=== PATIENT | male | born 1980 | race Caucasian/White ===

== ENCOUNTER 2021-11-24 20:44 | Emergency (ER) | payer OTHER, MEDICAID, SELFPAY ==
[2021-11-24 20:56] VITALS: BP 114/67; PULSE 87; RESP 20; TEMP 36.7; O2SAT 98
[2021-11-24] MEDS: FLUORESCEIN 1 MG STRIP EYE-LEFT (21:01)
[2021-11-24] MEDS: TET,DIPH,PERTUSS(ACELL),VAC/PF 0.5 ML SYRINGE IM (21:01)
[2021-11-24] MEDS: PROPARACAINE 0.5% OPHTH SOL 1 DROPS EYE-LEFT (21:01)
--- NOTE | 2021-11-24 22:23 | ED_ITS ---
HPI - Eye Problem General Chief complaint: Eye Problems Stated complaint: possible metal splinter in lt eye Time Seen by Provider: 11/24/21 21:17 Source: patient Mode of arrival: Ambulatory History of Present Illness HPI Narrative: Patient is a 41-year-old male who presents with something in his left eye. He does not were contacts or glasses. Yesterday he was cutting some metal without safety glasses and feels like he may have caught something in his eye. His previously he had something imbedded in his right eye requiring an ophthalmology removal. His eye is quite irritated. At he flushed it out multiple times yesterday trying to get it out but is not successful. He denies any blurry vision or double vision. Related Data Previous Rx's Medication Instructions Recorded polymyxin B sulfate 10,000 2 drp EYE-LEFT Q4HRWA #10 ml 11/24/21 unit-trimethoprim 1 mg/mL eye drops (Polytrim) Review of Systems Review of Systems Narrative: GENERAL: Denies chills,fever HEENT: See HPI RESPIRATORY: Denies dyspnea, cough, wheezing CARDIOVASCULAR: Denies chest pain, palpitations GASTROINTESTINAL: Denies nausea, vomiting MUSCULOSKELETAL: Denies extremity pain, injury SKIN: No rash, no laceration, no pruritus NEUROLOGIC: Denies weakness, dizziness, headache, numbness 8 point review of systems is negative except for those stated above and HPI Exam Initial Vital Signs Initial Vital Signs: Vital Signs Temperature 98.0 F 11/24/21 20:56 Pulse Rate 87 11/24/21 20:56 Respiratory Rate 20 11/24/21 20:56 Blood Pressure 114/67 11/24/21 20:56 Pulse Oximetry 98 11/24/21 20:56 GENERAL: Well-appearing, well-nourished and in no acute distress. Left eye was treated with proparacaine, stained with fluorescein. No dye upt richard. Possible small foreign body on cornea but no significant abrasion is irritated. No drainage CARDIOVASCULAR: peripheral pulses in tact, cap refill <2 sec RESPIRATORY: No respiratory distress, speaks in full sentences without difficulty EXTREMITIES: Normal range of motion, no clubbing or edema. Neurovascularly intact NEUROLOGICAL: Cranial nerves II through XII grossly intact. Normal gait and speech. SKIN: Warm, dry, no petechiae, no rashes or lesions. Course Orders Ordered: Discontinued Medications Diphtheria/Tetanus/Acell Pertussis (Diph,Pertuss(Acell),Tet Vac/Pf 0.5 Ml Syringe) 0.5 ml IM .ONCE ONE Stop: 11/24/21 20:55 Last Admin: 11/24/21 21:03 Dose: Not Given Documented by: ROMELIA Diphtheria/Tetanus/Acell Pertussis (Tet,Diph,Pertuss(Acell),Vac/Pf 0.5 Ml Syringe) 0.5 ml IM .ONCE ONE Stop: 11/24/21 21:00 Last Admin: 11/24/21 21:01 Dose: 0.5 ml Documented by: ROMELIA Erythromycin (Erythromycin Ophth 1 Gm Oint) 1 applic EYE-LEFT NOW ONE Stop: 11/24/21 22:22 Last Admin: 11/24/21 22:34 Dose: 1 applic Documented by: JON Fluorescein Sodium (Fluorescein 1 Mg Strip) 1 mg EYE-LEFT NOW ONE Stop: 11/24/21 20:57 Last Admin: 11/24/21 21:01 Dose: 1 mg Documented by: ROMELIA Proparacaine HCl (Proparacaine 0.5% Ophth Kaye) 1 drops EYE-LEFT NOW ONE Stop: 11/24/21 20:56 Last Admin: 11/24/21 21:01 Dose: 1 drop Documented by: ROMELIA Vital Signs Vital signs: Vital Signs - 8 hr 11/24/21 20:56 Temperature 98.0 F Pulse Rate 87 Respiratory Rate 20 Blood Pressure 114/67 Pulse Oximetry 98 MDM - Eye Problem MDM Narrative Medical decision making narrative: Patient is given diluted proparacaine solution 1:10 for total amout of 3 mL. His instructions 1-2 drops every hours for 24 hours only. He is also given erythromycin ophthalmic ointment in the ED with a prescription for Polytrim drops. There is no obvious dye uptake but is he see possible small foreign body. Discharge Plan Departure Patient Disposition: Home Clinical Impression: Acute foreign body of left eye Instructions: How to Get a Foreign Body Out of Your Eye Activity Restrictions/Additional Instructions: *You have been diagnosed with foreign body *What to do: It appears that you have a very small foreign body in her eye. They do recommend Ophthalmology follow-up *Continue to take medications as directed May use diluted proparacaine drops 1-2 drops every hour for only 24 hours Polytrim eyedrops 1-2 drops every 4 hours while awake Erythromycin ointment at nighttime Motrin 800 mg every 8 hours if needed for [id number]-hyafbhgp pain Tylenol 1000 mg every 6 hours if needed for [id number]-[id number] pain *Follow up with your primary care provider in 2-3 days or call [phone] *Return to ER if you should have increasing pain, visual changes or any new, worsening or concerning symptoms Prescriptions: New polymyxin B sulf-trimethoprim [Polytrim] 10,000 unit- 1 mg/mL drops 2 drp EYE-LEFT Q4HRWA Qty: 10 0RF Referrals: Braxton Patino MD [Physician] -
[2021-11-24] MEDS: FLUORESCEIN 1 MG STRIP (22:24)
[2021-11-24] MEDS: ERYTHROMYCIN OPHTH 1 GM OINT 1 APPLIC EYE-LEFT (22:34)
--- NOTE | 2021-11-25 | DI.RAD.S_ITS ---
PROCEDURE: XR PELVIS 1-2V INDICATIONS: TRAUMA TECHNIQUE: Single-view of the pelvis acquired. COMPARISON: None. FINDINGS: Bones: No definite fractures or dislocations. No suspicious bony lesions. Soft tissues: Visualized bowel gas pattern is normal. No suspicious soft tissue calcifications. IMPRESSION: 1. No definite fracture or dislocation. Dictated by: Ash Chu M.D. on 11/25/2021 at 22:57 Approved by: Ash Chu M.D. on 11/25/2021 at 22:57
== END 2021-11-24 22:53 | disposition home or self-care (01) ==
PROVIDERS: Emergency Provider Emergency Medicine
DX: T15.02XA Foreign body in cornea, left eye, initial encounter (principal); Z23 Encounter for immunization; W45.8XXA Other foreign body or object entering through skin, initial encounter
CPT/HCPCS: 90471; 99283; 90715

== ENCOUNTER 2022-04-08 21:49 | Emergency (ER) | payer OTHER, MEDICAID, SELFPAY ==
[2022-04-08 21:55] VITALS: BP 135/70; PULSE 89; RESP 18; TEMP 37.1; O2SAT 98; BMI 25.8
--- NOTE | 2022-04-09 01:27 | ED.SKABFB ---
HPI - Skin/Abscess/Foreign Bdy General Chief complaint: Extremity Injury, Upper Stated complaint: Possible Blood Poisoning Time Seen by Provider: 04/08/22 23:37 Source: patient Mode of arrival: Ambulatory Limitations: no limitations History of Present Illness HPI narrative: 41-year-old male nonsmoker noncontributory medical history presents with a chief complaint of a knee largely improving, spider bite on his left elbow. He 1st noticed it a few days ago, denies seeing any insects or spiders and denies any obvious injury, he developed some pain, redness and swelling on the dorsal aspect of his elbow. He was able to express some purulence material from it and the swelling of his elbow greatly improved but this evening he noticed a red streak up his left biceps. He is otherwise well and denies any systemic symptoms such as dizziness, weakness or lightheadedness. He has no fever or chills denies nausea or vomiting. Related Data Previous Rx's Medication Instructions Recorded polymyxin B sulfate 10,000 2 drp EYE-LEFT Q4HRWA #10 ml 11/24/21 unit-trimethoprim 1 mg/mL eye drops (Polytrim) doxycycline hyclate 100 mg tablet 100 mg PO BID #20 tab 04/09/22 Allergies Allergy/AdvReac Type Severity Reaction Status Date / Time No Known Drug Allergies Allergy Verified 04/08/22 21:55 Review of Systems Review of Systems Narrative: GENERAL: Denies chills, fatigue, malaise, fever, sweats. HEENT: Denies sinus pain, ear pain, sore throat, difficulty swallowing, dizziness. RESPIRATORY: Denies dyspnea, cough, wheezing, hemoptysis, sputum. CARDIOVASCULAR: Denies chest pain, palpitations, orthopnea, edema, GASTROINTESTINAL: Denies nausea, vomiting, abdominal pain, diarrhea, constipation, melena. : Denies dysuria, frequency, incontinence, hematuria, urinary retention. MUSCULOSKELETAL: See HPI SKIN: Denies rash, skin lesions, or other NEUROLOGIC: Denies weakness, headache, numbness, change in speech, confusion, seizures, incoordination. PSYCHIATRIC: No concerning psychosocial issues. 12 point review of systems is negative except for those stated above Patient History tobacco type: smokeless tobacco alcohol intake frequency: 0-2 drinks per day Substance Use Type: marijuana Exam Narrative Exam Narrative: GEN: AOx3 and in mild distress EYES: Pupils are equal, round, and reactive to light and accommodation. Extraoccular muscles are intact bilaterally. There is no subconjunctival hemorrhage or exudate. CHEST: Lungs are clear to auscultation bilaterally and free of wheezes, rales, or rhonchi. Heart rate is regular rhythm, there are no murmurs, clicks, rubs, or gallops. There is no chest wall tenderness. ABD: Abdomen is soft and nontender. There is no guarding or rebound. Bowel sounds are normal in all 4 quadrants. There is no mass or organomegaly. EXT: Full ROM of elbow without evidence to suggest septic joint. Small crusted lesion with minimal surrounding erythema is draining a small amount of purulent material. a few cm of lymphangitis noticed on underside of left biceps, no palpable lymphadenopathy SKIN: Warm, pink, and dry. No erythema or rash Initial Vital Signs Initial Vital Signs: Vital Signs Temperature 98.7 F 04/08/22 21:55 Pulse Rate 89 04/08/22 21:55 Respiratory Rate 18 04/08/22 21:55 Blood Pressure 135/70 04/08/22 21:55 Pulse Oximetry 98 04/08/22 21:55 Course Orders Ordered: Discontinued Medications Doxycycline Hyclate (Doxycycline Hyclate 100 Mg Tablet) 100 mg PO NOW ONE Stop: 04/09/22 01:28 Last Admin: 04/09/22 01:32 Dose: 100 mg Documented by: AMARILYS Vital Signs Vital signs: Vital Signs - 8 hr 04/08/22 21:55 Temperature 98.7 F Pulse Rate 89 Respiratory Rate 18 Blood Pressure 135/70 Pulse Oximetry 98 MDM - Skin/Abscess/Foreign Bdy MDM Narrative Medical decision making narrative: well-appearing 41-year-old male with reassuring history physical exam. Patient with no signs of sepsis or systemic complaints. Physical exam would suggest against the likelihood of septic joint. Abscess is spontaneously draining without indication for more thorough incision and drainage. Wound culture obtained and sent to lab. Return precautions discussed and questions answered to his apparent satisfaction Discharge Plan Departure Patient Disposition: Home Clinical Impression: Cellulitis of left elbow Instructions: DI for Cellulitis -- Adult Activity Restrictions/Additional Instructions: *You have been diagnosed with [left elbow cellulitis with lymphangitis. Your history and physical exam are very reassuring. I obtained a wound culture which should give us results in a few days, we will call you if and only if a change to your antibiotic regimen is required *What to do: *Please continue to take your regular medications as directed. [x ] New medication prescriptions sent to your pharmacy: [ [facility]] [ ] New medication written as a paper prescription [ ] No new medications given *Please follow up with your primary care provider in 2-3 days, call for an appointment. Let them know you were seen in the Emergency Department and that we ask that you be seen in follow up. We will electronically transmit a record of today's note if your PCP is in our system *If you do not have a primary care provider please contact the [facility] Resource line at [phone]. They will ask some questions about your medical history and help get you set up with a doctor in the community. *Return to Emergency Department if you should have any new, worsening or concerning symptoms, such as [fever greater than 101 F, shaking chills, worsening pain, persistent vomiting or other bothersome symptoms] Prescriptions: New doxycycline hyclate 100 mg tablet 100 mg PO BID Qty: 20 0RF No Action polymyxin B sulf-trimethoprim [Polytrim] 10,000 unit- 1 mg/mL drops 2 drp EYE-LEFT Q4HRWA Qty: 10 0RF
[2022-04-09] MEDS: DOXYCYCLINE HYCLATE 100 MG TABLET PO (01:32)
== END 2022-04-09 01:34 | disposition home or self-care (01) ==
PROVIDERS: Emergency Provider Emergency Medicine
DX: L03.114 Cellulitis of left upper limb (principal)
CPT/HCPCS: 87070; 87075; 87077; 87147; 87205; 99283

== ENCOUNTER 2022-11-07 09:50 | Emergency (ER) | payer OTHER, MEDICAID, SELFPAY ==
[2022-11-07 10:18] VITALS: BP 136/75; PULSE 106; RESP 14; TEMP 37.2; O2SAT 99; BMI 25.0
--- NOTE | 2022-11-07 14:17 | ED.BACK ---
HPI - Back Pain/Injury <Purnima Clemons PA-C - Last Filed: 11/07/22 15:45> General Chief Complaint: Back Pain/Injury Stated Complaint: thinks he might've pinched a nerve t-5 Time Seen by Provider: 11/07/22 13:50 Source: patient History of Present Illness HPI Narrative: 42-year-old male with no reported past medical history presents to the ED with 3 days of lower back pain. Patient states he was lifting something heavy, after which his pain started. Patient denies numbness, tingling, weakness. Patient denies urinary hesitancy, urinary incontinence, saddle paresthesias, bowel incontinence. Patient states that he felt some pain in the gluteal areas, however pain does not radiate down his legs. The lower back pain is left greater than right. Related Data Previous Rx's Medication Instructions Recorded cyclobenzaprine 10 mg tablet 10 mg PO TID PRN muscle spasm #20 11/07/22 tabs Allergies Allergy/AdvReac Type Severity Reaction Status Date / Time No Known Drug Allergies Allergy Verified 11/07/22 10:23 Review of Systems <Purnima Clemons PA-C - Last Filed: 11/07/22 15:45> Review of Systems ROS Unobtainable: All systems reviewed & are unremarkable except as noted in HPI and below Constitutional Constitutional: Denies chills, Denies fatigue, Denies fever(s), Denies frequent falls, Denies lethargy and Denies weakness Eyes Eyes: Denies change in vision, Denies eye discharge, Denies irritation and Denies loss of vision ENT Ears, Nose, Mouth, and Throat: Denies change in voice, Denies dizziness, Denies neck pain, Denies sore throat and Denies throat swelling Cardiovascular Cardiovascular: Denies chest pain, Denies irregular heart rhythm, Denies lightheadedness, Denies palpitations, Denies dyspnea, Denies dyspnea on exertion and Denies orthopnea Respiratory Respiratory: Denies cough, Denies dyspnea, Denies dyspnea on exertion and Denies wheezing Gastrointestinal Gastrointestinal: Denies abdominal pain, Denies change in bowel habits, Denies diarrhea, Denies nausea and Denies vomiting Genitourinary Genitourinary: Denies hematuria, Denies flank pain, Denies urinary incontinence and Denies urinary urgency Musculoskeletal Musculoskeletal: Reports back pain, Denies muscle weakness, Denies neck pain, Denies numbness and Denies tingling Integumentary/Breasts Skin/Breast: Denies pruritus, Denies erythema, Denies rash and Denies wounds Neurologic Neurologic: Denies behavioral changes, Denies confusion, Denies dizziness, Denies frequent falls, Denies loss of vision, Denies numbness, Denies tingling and Denies weakness Psychiatric Psychiatric: Denies anxiety, Denies behavioral changes, Denies confusion, Denies depression, Denies homicidal ideation and Denies suicidal ideation Endocrine Endocrine: Denies fatigue, Denies flushing and Denies palpitations Hematologic/Lymphatic Hematologic/Lymphatic: Denies easy bruising Allergic/Immunologic Allergic/Immunologic: Denies urticaria, Denies throat swelling and Denies wheezing Patient History <Purnima Clemons PA-C - Last Filed: 11/07/22 15:45> tobacco type: smokeless tobacco alcohol intake frequency: 0-2 drinks per day Substance Use Type: marijuana Exam <Purnima Clemons PA-C - Last Filed: 11/07/22 15:45> Narrative Exam Narrative: Const General:?cooperative, healthy appearing and comfortable [facility] Head:?normal to inspection Ears:?hearing grossly normal bilaterally Nose:?external nose normal Face and sinus:?normal facial exam and sinuses nontender Mouth:?oral mucosae normal Throat:?posterior oropharynx normal Eyes General:?appearance normal, both eyes and all related structures Neck Neck:?normal visual inspection and no lymphadenopathy noted Resp Effort & Inspection:?normal respiratory effort Auscultation:?clear to auscultation bilaterally Cardio Rate:?regular rate Rhythm:?regular rhythm Musculoskeletal Midline tenderness to palpation in the lumbar region. Left sided Paraspinal tenderness to palpation in the lumbar region. Strength and sensation intact. Range of motion intact. Gait is normal. Patient is neurovascularly intact. Neuro General:?patient alert, patient awake and patient oriented x3 Initial Vital Signs Initial Vital Signs: Vital Signs Temperature 99.0 F 11/07/22 10:18 Pulse Rate 106 H 11/07/22 10:18 Respiratory Rate 14 11/07/22 10:18 Blood Pressure 136/75 11/07/22 10:18 Pulse Oximetry 99 11/07/22 10:18 Oxygen Delivery Method 11/07/22 10:18 <Cinthya Hdez DO - Last Filed: 11/08/22 09:17> Initial Vital Signs Initial Vital Signs: Vital Signs Temperature 99.0 F 11/07/22 10:18 Pulse Rate 106 H 11/07/22 10:18 Respiratory Rate 14 11/07/22 10:18 Blood Pressure 136/75 11/07/22 10:18 Pulse Oximetry 99 11/07/22 10:18 Oxygen Delivery Method 11/07/22 10:18 Course <Purnima Clemons PA-C - Last Filed: 11/07/22 15:45> Orders Ordered: Discontinued Medications Cyclobenzaprine HCl (Cyclobenzaprine 10 Mg Tablet) 10 mg PO NOW ONE Stop: 11/07/22 14:21 Last Admin: 11/07/22 15:00 Dose: 10 mg Documented By: REILLY Ketorolac Tromethamine (Ketorolac 30 Mg/Ml Vial) 30 mg IM NOW ONE Stop: 11/07/22 14:21 Last Admin: 11/07/22 15:00 Dose: 30 mg Documented By: REILLY Lidocaine (Lidocaine Patch 1 Each Adh..Patch) 1 each TOP NOW ONE Stop: 11/07/22 15:39 Last Admin: 11/07/22 15:49 Dose: 1 each Documented By: REILLY Lidocaine (Remove Lidocaine Patch) 1 each TOP BEDTIME ANTHONY Vital Signs Vital signs: Vital Signs - 8 hr 11/07/22 10:18 Temperature 99.0 F Pulse Rate 106 H Respiratory Rate 14 Blood Pressure 136/75 Pulse Oximetry 99 Oxygen Delivery Method Room Air <Cinthya Hdez DO - Last Filed: 11/08/22 09:17> Orders Ordered: Discontinued Medications Cyclobenzaprine HCl (Cyclobenzaprine 10 Mg Tablet) 10 mg PO NOW ONE Stop: 11/07/22 14:21 Last Admin: 11/07/22 15:00 Dose: 10 mg Documented By: REILLY Ketorolac Tromethamine (Ketorolac 30 Mg/Ml Vial) 30 mg IM NOW ONE Stop: 11/07/22 14:21 Last Admin: 11/07/22 15:00 Dose: 30 mg Documented By: REILLY Lidocaine (Lidocaine Patch 1 Each Adh..Patch) 1 each TOP NOW ONE Stop: 11/07/22 15:39 Last Admin: 11/07/22 15:49 Dose: 1 each Documented By: REILLY Lidocaine (Remove Lidocaine Patch) 1 each TOP BEDTIME ANTHONY Vital Signs Vital signs: Vital Signs - 8 hr 11/07/22 10:18 Temperature 99.0 F Pulse Rate 106 H Respiratory Rate 14 Blood Pressure 136/75 Pulse Oximetry 99 Oxygen Delivery Method Room Air MDM - Back Pain/Injury <Purnima Clemons PA-C - Last Filed: 11/07/22 15:45> Imaging Data CT lumbar spine: Radiologist's Impression: PROCEDURE:? CT LUMBAR SPINE WO CON ? INDICATIONS:? Lower back pain ? TECHNIQUE:? Noncontrast 3 mm thick sections acquired from the T12 level to the sacrum.? Sagittal and coronal reformats were constructed.? For radiation dose reduction, the following was used:? automated exposure control.? ? COMPARISON:? None. ? FINDINGS:? Image quality:? Excellent.? ? Bones:? There is normal bony alignment.? No acute vertebral body compression fractures.? No suspicious lytic or blastic bony lesions.? No pars defects.? ? T12-L1:? No canal stenosis or foraminal stenosis. ? L1-L2:? No canal stenosis or foraminal stenosis. ? L2-L3:? Minimal disc bulge. No canal stenosis or foraminal stenosis. ? L3-L4:? Disc bulge. No canal stenosis or foraminal stenosis. ? L4-L5:? Mild diffuse disc bulge.? No canal stenosis.? Hofp-va-zlwnyoht left foraminal stenosis. ? L5-S1:? Mild central posterior disc protrusion which is minimally eccentric to the right, and abuts the right S1 nerve root in the left lateral recess.? ? Soft tissues:? No retroperitoneal masses or hematomas.? Visualized aorta is normal in caliber.? ? ? IMPRESSION:? A mild central posterior disc protrusion at L5-S1 abuts the right S1 nerve root in the right lateral recess. ? ? Dictated by: Jose Smith M.D. on 11/07/2022 at 15:00 ? ? Approved by: Jose Smith M.D. on 11/07/2022 at 15:04 ? [facility] Narrative Medical decision making narrative: 42-year-old male with no reported past medical history presents to the ED with 3 days of lower back pain. Concern for fracture/dislocation versus musculoskeletal sprain/strain versus radiculopathy. Will obtain CT lumbar spine to rule out fracture/dislocation. Will give Toradol, Flexeril for pain. Will reassess. Per lumbar CT, A mild central posterior disc protrusion at L5-S1 abuts the right S1 nerve root in the right lateral recess. Patient's symptoms improved with Toradol, Flexeril. Lidocaine patch applied as well. Prescribed Flexeril. Recommend ibuprofen, Tylenol, salonpas as well for pain control. ED return precautions were discussed with patient. Patient verbalized understanding. Discharge Plan Departure Patient Disposition: Home Clinical Impression: Back pain Instructions: DI for Low Back Pain Activity Restrictions/Additional Instructions: You were evaluated in the ED today for low back pain. Your CT shows a bulging disc in the L5-S1 region the lower back, which is impinging on a nerve, causing pain. Your symptoms improved with Toradol, Flexeril. You are being given a prescription for Flexeril which you may continue to take for the next several days. Please follow-up with your PCP for further evaluation and possible referral to physical therapy. You may also use a lidocaine patch which is available in the drugstore under the trade name Salonpas. You can also take ibuprofen for your pain. Return to the ED if your symptoms worsen, you experience numbness, tingling, weakness. Prescriptions: New cyclobenzaprine 10 mg tablet 10 mg PO TID PRN (Reason: muscle spasm) Qty: 20 0RF Referrals: Miscellaneous,Doctor, MD [Primary Care Provider] - Visit Report Forms: Patient Portal/API <Cinthya Hdez DO - Last Filed: 11/08/22 09:17> Cosign ED Attending Quinn Attestation: I was immediately available in the department for consultation. Documentation has been reviewed. I agree with assessment and plan.
--- NOTE | 2022-11-07 14:21 | DI.CT.S_ITS ---
PROCEDURE: CT LUMBAR SPINE WO CON INDICATIONS: Lower back pain TECHNIQUE: Noncontrast 3 mm thick sections acquired from the T12 level to the sacrum. Sagittal and coronal reformats were constructed. For radiation dose reduction, the following was used: automated exposure control. COMPARISON: None. FINDINGS: Image quality: Excellent. Bones: There is normal bony alignment. No acute vertebral body compression fractures. No suspicious lytic or blastic bony lesions. No pars defects. T12-L1: No canal stenosis or foraminal stenosis. L1-L2: No canal stenosis or foraminal stenosis. L2-L3: Minimal disc bulge. No canal stenosis or foraminal stenosis. L3-L4: Disc bulge. No canal stenosis or foraminal stenosis. L4-L5: Mild diffuse disc bulge. No canal stenosis. Stra-lc-tjaosofj left foraminal stenosis. L5-S1: Mild central posterior disc protrusion which is minimally eccentric to the right, and abuts the right S1 nerve root in the left lateral recess. Soft tissues: No retroperitoneal masses or hematomas. Visualized aorta is normal in caliber. IMPRESSION: A mild central posterior disc protrusion at L5-S1 abuts the right S1 nerve root in the right lateral recess. Dictated by: Jose mSith M.D. on 11/07/2022 at 15:00 Approved by: Jose Smith M.D. on 11/07/2022 at 15:04
[2022-11-07] MEDS: KETOROLAC 30 MG/ML VIAL IM (15:00)
[2022-11-07] MEDS: CYCLOBENZAPRINE 10 MG TABLET PO (15:00)
[2022-11-07] MEDS: LIDOCAINE PATCH 1 EACH ADH..PATCH TOP (15:49)
[2022-11-07 15:59] VITALS: BP 122/78; PULSE 72; RESP 16; O2SAT 99
== END 2022-11-07 16:01 | disposition home or self-care (01) ==
PROVIDERS: Emergency Provider Student in an Organized Health Care Education/Training Program
DX: M54.50 Low back pain, unspecified (principal); M51.36 Other intervertebral disc degeneration, lumbar region
CPT/HCPCS: 72131; 96372; 99283; 99284; J1885

== ENCOUNTER 2023-06-01 11:16 | Emergency (ER) | payer OTHER, MEDICAID, SELFPAY ==
[2023-06-01 11:24] VITALS: BP 125/78; PULSE 81; RESP 16; TEMP 36.6; O2SAT 98; BMI 29.0
--- NOTE | 2023-06-01 11:30 | DI.RAD.S_ITS ---
PROCEDURE: XR CHEST 2V INDICATIONS: productive cough. R sided CP TECHNIQUE: 2 views of the chest were acquired. COMPARISON: None. FINDINGS: Surgical changes and devices: None. Lungs and pleura: Lungs are clear. No pleural effusions or pneumothorax. Mediastinum: Mediastinal contours are normal. Heart size is normal. Bones and chest wall: No suspicious bony abnormalities. Soft tissues appear unremarkable. IMPRESSION: No acute pulmonary process. Dictated by: Mandi Moreau M.D. on 06/01/2023 at 11:58 Approved by: Mandi Moreau M.D. on 06/01/2023 at 11:58
[2023-06-01] MEDS: ASPIRIN 81 MG CHEW TAB 324 MG PO (13:02)
[2023-06-01 13:20] LABS: INR 1.1 (0.9-1.3); Prothrombin Time 12.4 SECONDS (10.1-12.7)
[2023-06-01 13:23] LABS: PTT Partial Thromboplastin Tim 51 SECONDS (26-36)
[2023-06-01 13:25] LABS: Alanine Aminotransferase 118 IU/L (<50); Albumin 5.2 g/dL (3.5-5.0); Albumin Globulin Ratio 1.4 (1.0-2.8); Alkaline Phosphatase 84 U/L (38-126); Aspartate Aminotransferase 61 IU/L (17-59); BUN Creatinine Ratio 13.9 (6-22); Blood Urea Nitrogen 14 mg/dL (9-20); Calcium 10.1 mg/dL (8.4-10.2); Carbon Dioxide 31 mmol/L (22-32); Chloride 98 mmol/L (98-107); Creatine Kinase 82 U/L (55-170); Estimated Glomerular Filt Rate > 60 mL/min (>60); Globulin 3.6 g/dL (1.7-4.1); Glucose 109 mg/dL (70-100); HEMOLYSIS 18 (0-50); Lipase 79 U/L (23-300); Magnesium 2.3 mg/dL (1.6-2.3); Potassium 4.8 mmol/L (3.4-5.1); Sodium 137 mmol/L (137-145); Total Protein 8.8 g/dL (6.3-8.2)
[2023-06-01 13:31] LABS: Add Manual Diff / Slide Review NO; Basophils Absolute Auto 100 /uL (0-100); Basophils Percent Auto 0.9 % (0-2); Eosinophils Absolute Auto 200 /uL (0-450); Eosinophils Percent Auto 2.3 % (2-4); Hematocrit 48.9 % (41-53); Hemoglobin 17.2 g/dL (13.5-17.5); Lymphocytes Absolute Auto 1700 /uL (1100-4500); Lymphocytes Percent Auto 23.1 % (25-40); Mean Corpuscular HGB Conc 35.1 % (30-36); Mean Corpuscular Hemoglobin 33.1 PG (26-34); Mean Corpuscular Volume 94.3 fL (80-100); Monocytes Absolute Auto 700 /uL (0-900); Monocytes Percent Auto 9.8 % (3-14); Neutrophils Absolute Auto 4700 /uL (1500-7000); Neutrophils Percent Auto 63.9 % (50-75); Platelet Count 225 X10^3/uL (150-400); Red Blood Cell Count 5.18 X10^6/uL (4.5-5.9); Red Cell Distribution Width 13.6 % (11.6-14.8); White Blood Cell Count 7.3 X10^3/uL (4.5-11.0)
[2023-06-01 13:36] LABS: Troponin I < 0.012 ng/mL (0.01-0.034)
[2023-06-01 14:59] VITALS: BP 141/85
[2023-06-01 15:00] VITALS: BP 121/79; PULSE 57; O2SAT 99
[2023-06-01 15:30] VITALS: BP 121/81; PULSE 53; O2SAT 98
--- NOTE | 2023-06-01 15:41 | ED.URI ---
HPI - URI/Sore Throat General Chief Complaint: Upper Respiratory Symptoms Stated Complaint: R/upper chest pain/ numbness in R/hand Time Seen by Provider: 06/01/23 15:04 Source: patient Mode of arrival: Ambulatory Limitations: no limitations History of Present Illness HPI Narrative: Patient presents with right upper chest discomfort for the past 3 days. The pain does not radiate. Pain is exacerbated with motion of the right shoulder. He has no palpitations, diaphoresis, no dyspnea. He is no recent illness. He is no cough or dyspnea. He is not a smoker. He is a local environmental management specialist. He does a lot of heavy work on a regular, daily basis. He can not recall a specific injury. He is no history of cardiopulmonary disease. Related Data Previous Rx's Medication Instructions Recorded cyclobenzaprine 10 mg tablet 10 mg PO TID PRN muscle spasm #20 11/07/22 tabs methocarbamol 750 mg tablet 750 mg PO Q6H PRN muscle spasm #60 06/01/23 tabs Allergies Allergy/AdvReac Type Severity Reaction Status Date / Time No Known Drug Allergies Allergy Verified 06/01/23 11:28 Review of Systems Review of Systems ROS Unobtainable: All systems reviewed & are unremarkable except as noted in HPI and below Constitutional Constitutional: Denies body ache(s), Denies fever(s), Denies frequent falls and Denies weakness Eyes Eyes: Denies blurry vision and Denies change in vision ENT Ears, Nose, Mouth, and Throat: Denies dizziness, Denies mouth pain and Denies sore throat Cardiovascular Cardiovascular: Denies chest pain, Denies rapid heart rate, Denies pedal edema, Denies leg edema and Denies dyspnea Respiratory Respiratory: Denies cough and Denies dyspnea Gastrointestinal Gastrointestinal: Denies abdominal pain Musculoskeletal Comments: No lower extremity edema Integumentary/Breasts Skin/Breast: Denies rash Neurologic Neurologic: Denies dizziness, Denies frequent falls and Denies weakness Hematologic/Lymphatic On Anticoagulants: No Patient History tobacco type: smokeless tobacco alcohol intake frequency: 0-2 drinks per day Alcohol type: beer Substance Use Type: marijuana Exam Initial Vital Signs Initial Vital Signs: Vital Signs Temperature 98 F 06/01/23 11:24 Pulse Rate 81 06/01/23 11:24 Respiratory Rate 16 06/01/23 11:24 Blood Pressure 125/78 06/01/23 11:24 Pulse Oximetry 98 06/01/23 11:24 Oxygen Delivery Method Room Air 06/01/23 11:24 Const General: cooperative, healthy appearing, comfortable, well developed and well groomed [facility] Head: normal to inspection, normocephalic and atraumatic Mouth: oral mucosae normal Throat: posterior oropharynx normal Eyes Pupils: PERRL EOM: EOM intact bilaterally Neck Neck: normal visual inspection and No lymphadenopathy Chest Chest: normal inspection of the chest Other: Palpable tenderness in the right pectoralis major muscle. Pain is exacerbated both palpation and manipulation of the right shoulder. No right shoulder discomfort. No crepitus or palpable deformity. Resp Effort & Inspection: normal respiratory effort Auscultation: clear to auscultation bilaterally Cardio Rate: regular rate Rhythm: regular rhythm Heart Sounds: S1 normal, S2 normal and no murmurs GI Inspection: normal to inspection Palpation: soft and No tender Back/Spine/Pelvis Back: No back tenderness Skin General: no rashes or lesions noted Neuro General: patient alert, patient awake, patient oriented x3 and no focal motor deficits Extrem General: normal to inspection, full ROM, no pedal edema and no calf tenderness Psych Appearance: grossly normal Course Course Course Narrative: Patient has a strain to the right pectoralis major muscle. I started him ibuprofen Robaxin while in ER. He will be discharged on the same medications. Orders Ordered: ED Orders 06/01/23 12:50 Complete Blood Count AUTO DIFF Stat Comprehensive Metabolic Panel Stat Lipase Stat Magnesium Stat PTT Partial Thromboplastin [place] Stat Prothrombin Time INR Stat Troponin & CK Cardiac Panel Stat 06/01/23 12:56 EKG-12 Lead Stat Discontinued Medications Aspirin (Aspirin 81 Mg Chew Tab) 324 mg PO NOW ONE Stop: 06/01/23 12:31 Last Admin: 06/01/23 13:02 Dose: 324 mg Documented By: USHA Ibuprofen (Ibuprofen 400 Mg Tablet) 800 mg PO NOW ONE Stop: 06/01/23 16:48 Last Admin: 06/01/23 17:16 Dose: 800 mg Documented By: JAVON Methocarbamol (Methocarbamol 500 Mg Tablet) 750 mg PO NOW ONE Stop: 06/01/23 16:48 Last Admin: 06/01/23 17:17 Dose: 750 mg Documented By: JAVON Vital Signs Vital signs: Vital Signs - 8 hr 06/01/23 14:59 06/01/23 15:00 06/01/23 15:00 Pulse Rate 57 L Respiratory Rate Blood Pressure 141/85 H 121/79 Pulse Oximetry 99 06/01/23 15:30 06/01/23 15:30 06/01/23 16:00 Pulse Rate 53 L Respiratory Rate Blood Pressure 121/81 108/86 Pulse Oximetry 98 06/01/23 16:00 Pulse Rate 56 L Respiratory Rate 19 Blood Pressure Pulse Oximetry 96 MDM - URI/Sore Throat Lab Data 06/01/23 12:50 06/01/23 12:50 Labs: Lab Results 06/01/23 06/01/23 06/01/23 Range/Units 12:50 12:50 12:50 WBC 7.3 (4.5-11.0) X10^3/uL RBC 5.18 (4.5-5.9) X10^6/uL Hgb 17.2 (13.5-17.5) g/dL Hct 48.9 (41-53) % MCV 94.3 (80-100) fL MCH 33.1 (26-34) PG MCHC 35.1 (30-36) % RDW 13.6 (11.6-14.8) % Plt Count 225 (150-400) X10^3/uL Neut % (Auto) 63.9 (50-75) % Lymph % (Auto) 23.1 L (25-40) % [place] % (Auto) 9.8 (3-14) % Eos % (Auto) 2.3 (2-4) % Baso % (Auto) 0.9 (0-2) % Neut # (Auto) 4700 (2960-5995) /uL Lymph # (Auto) 1700 (2510-6526) /uL [place] # (Auto) 700 (0-900) /uL Eos # (Auto) 200 (0-450) /uL Baso # (Auto) 100 (0-100) /uL PT 12.4 (10.1-12.7) SECONDS INR 1.1 (0.9-1.3) APTT 51 H (26-36) SECONDS Sodium 137 (137-145) mmol/L Potassium 4.8 (3.4-5.1) mmol/L Chloride 98 (98-107) mmol/L Carbon Dioxide 31 (22-32) mmol/L BUN 14 (9-20) mg/dL Creatinine 1.01 (0.66-1.25) mg/dL Estimated GFR > 60 (>60) mL/min BUN/Creatinine Ratio 13.9 (6-22) Glucose 109 H (70-100) mg/dL Calcium 10.1 (8.4-10.2) mg/dL Magnesium 2.3 (1.6-2.3) mg/dL Total Bilirubin 1.0 (0.2-1.3) mg/dL AST 61 H (17-59) IU/L ALT 118 H (<50) IU/L Alkaline Phosphatase 84 (38-126) U/L Total Creatine Kinase 82 (55-170) U/L Troponin I < 0.012 (0.01-0.034) ng/mL Total Protein 8.8 H (6.3-8.2) g/dL Albumin 5.2 H (3.5-5.0) g/dL Globulin 3.6 (1.7-4.1) g/dL Albumin/Globulin Ratio 1.4 (1.0-2.8) Lipase 79 (23-300) U/L Imaging Data Chest x-ray: Radiologist's Impression: Normal ECG Data Attestation: I personally reviewed and interpreted this ECG as follows: (Normal sinus rhythm rate 65 beats per minute. Normal intervals. No ectopy. No acute ST T wave changes. Normal study.) Discharge Plan Departure Patient Disposition: Home Clinical Impression: Muscle strain of anterior chest wall Instructions: DI for Muscle Strain Activity Restrictions/Additional Instructions: Advil 3 tablets every 6 hours for pain. Robaxin 1 tablet every 6 hours for spasm. I suggest you take the medications together. Limit activity with her right arm/shoulder until symptoms improve. Recheck with your doctor if not improved within 2 weeks, return here if obviously worse. Prescriptions: New methocarbamol 750 mg tablet 750 mg PO Q6H PRN (Reason: muscle spasm) Qty: 60 0RF No Action cyclobenzaprine 10 mg tablet 10 mg PO TID PRN (Reason: muscle spasm) Qty: 20 0RF Referrals: Murali Araya MD [Primary Care Provider] - Stand Alone Forms: Patient Portal/API
[2023-06-01 16:00] VITALS: BP 108/86; PULSE 56; RESP 19; O2SAT 96
[2023-06-01] MEDS: IBUPROFEN 400 MG TABLET 800 MG PO (17:16)
[2023-06-01] MEDS: methocarbamoL 500 MG TABLET 750 MG PO (17:17)
== END 2023-06-01 17:20 | disposition home or self-care (01) ==
PROVIDERS: Emergency Provider Emergency Medicine; PCP Internal Medicine Medical Oncology
DX: S29.011A Strain of muscle and tendon of front wall of thorax, initial encounter (principal); R07.9 Chest pain, unspecified
CPT/HCPCS: 36415; 71046; 80053; 82550; 83690; 83735; 84484; 85025; 85610; 85730; 93005; 99284

== ENCOUNTER 2025-02-28 16:35 | Emergency (ER) | payer SELFPAY ==
[2025-02-28] VITALS (11 sets, daily range): BP systolic 117–139; BP diastolic 69–88; PULSE 80–105; RESP 14–21; O2SAT 95–98; BMI 29.8
--- NOTE | 2025-02-28 16:41 | EKG_ITS ---
[address] [address] [address], [place] [address] Test Date: 2025-02-28 Pat Name: Armando Joshi Department: Room: Gender: Male [employer] Clerk: PAYAL : 1980 Requested By: Order Number: [id number] Reading MD: Campos Coronel Measurements Intervals [place] Rate: 106 P: 52 WV: 140 QRS: 38 QRSD: 84 T: 42 QT: 322 QTc: 427 Interpretive Statements Sinus tachycardia Electronically Signed On 03-04-2025 20:09:24 PDT by Campos Coronel
--- NOTE | 2025-02-28 16:42 | DI.RAD.S_ITS ---
PROCEDURE: XR CHEST 1V INDICATIONS: chest pain TECHNIQUE: One view of the chest was acquired. COMPARISON: Located Within [facility], CR, XR CHEST 1 VIEW, 06/02/2023, 13:56. [facility], CR, XR CHEST 2V, 06/01/2023, 11:25. FINDINGS AND IMPRESSION: On this single view study, no dense airspace disease or pleural effusions. Low lung volumes. Normal heart size. Degenerative osseous changes. Dictated by: Emerson Alejo M.D. on 02/28/2025 at 17:08 Approved by: Emerson Alejo M.D. on 02/28/2025 at 17:08
[2025-02-28] MEDS: ASPIRIN 81 MG CHEW TAB 324 MG PO (17:07)
[2025-02-28 17:20] LABS: INR 1.1 (0.9-1.3); Prothrombin Time 12.2 SECONDS (9.4-12.5)
[2025-02-28 17:23] LABS: PTT Partial Thromboplastin Tim 66 SECONDS (25.1-36.5)
[2025-02-28 17:25] LABS: Alanine Aminotransferase 31 IU/L (<50); Albumin 5.1 g/dL (3.5-5.0); Albumin Globulin Ratio 1.6 (1.0-2.8); Alkaline Phosphatase 74 U/L (38-126); Aspartate Aminotransferase 35 IU/L (17-59); BUN Creatinine Ratio 10.7 (6-22); Bilirubin Total 1.1 mg/dL (0.2-1.3); Blood Urea Nitrogen 12 mg/dL (9-20); Calcium 9.9 mg/dL (8.4-10.2); Carbon Dioxide 28 mmol/L (22-32); Chloride 100 mmol/L (98-107); Creatine Kinase 75 U/L (55-170); Estimated Glomerular Filt Rate > 60 mL/min (>60); Globulin 3.1 g/dL (1.7-4.1); Glucose 143 mg/dL (70-100); HEMOLYSIS 15 (0-50); Lipase 66 U/L (23-300); Magnesium 2.2 mg/dL (1.6-2.3); Potassium 3.9 mmol/L (3.4-5.1); Sodium 137 mmol/L (137-145); Total Protein 8.2 g/dL (6.3-8.2)
[2025-02-28 17:36] LABS: NT-proBNP (BNP-Adult 18+) < 20 pg/mL (<125); Troponin I < 0.012 ng/mL (0.01-0.034)
[2025-02-28 17:37] LABS: Add Manual Diff / Slide Review NO; Basophils Absolute Auto 100 /uL (0-100); Basophils Percent Auto 0.6 % (0-2); Eosinophils Absolute Auto 100 /uL (0-450); Eosinophils Percent Auto 1.2 % (2-4); Hematocrit 47.2 % (41-53); Hemoglobin 16.9 g/dL (13.5-17.5); Lymphocytes Absolute Auto 2000 /uL (1100-4500); Lymphocytes Percent Auto 23.2 % (25-40); Mean Corpuscular HGB Conc 35.9 % (30-36); Mean Corpuscular Hemoglobin 33.5 PG (26-34); Mean Corpuscular Volume 93.4 fL (80-100); Monocytes Absolute Auto 600 /uL (0-900); Monocytes Percent Auto 7.5 % (3-14); Neutrophils Absolute Auto 5800 /uL (1500-7000); Neutrophils Percent Auto 67.5 % (50-75); Platelet Count 280 X10^3/uL (150-400); Red Blood Cell Count 5.06 X10^6/uL (4.5-5.9); Red Cell Distribution Width 13.4 % (11.6-14.8); White Blood Cell Count 8.6 X10^3/uL (4.5-11.0)
--- NOTE | 2025-02-28 21:07 | ED.CHESTPAIN ---
HPI - Chest Pain General Chief Complaint: Chest Pain Stated Complaint: chest px thru arm and back Time Seen by Provider: 02/28/25 18:18 History of Present Illness HPI narrative: 44-year-old gentleman with cough for the last 6 days with right chest pain and mild dyspnea. Pain is worse along the costochondral margins worse with a deep breath. He denies significant fevers no productive cough. No palpitations, no abdominal pain, nausea, vomiting, lower extremity edema, headaches. Patient prefers to avoid medications and has not tried ibuprofen or Tylenol for pain control. Related Data Previous Rx's Medication Instructions Recorded cyclobenzaprine 10 mg tablet 10 mg PO TID PRN muscle spasm #20 11/07/22 tabs methocarbamol 750 mg tablet 750 mg PO Q6H PRN muscle spasm #60 06/01/23 tabs Allergies Allergy/AdvReac Type Severity Reaction Status Date / Time No Known Drug Allergies Allergy Verified 06/01/23 11:28 Review of Systems Review of Systems Narrative: Pertinent positive and negative findings as per HPI Patient History tobacco type: smokeless tobacco alcohol intake frequency: 0-2 drinks per day Alcohol type: beer Exam Initial Vital Signs Initial Vital Signs: Vital Signs Pulse Rate 105 H 02/28/25 16:40 Respiratory Rate 16 02/28/25 16:40 Blood Pressure 136/88 02/28/25 16:40 Pulse Oximetry 96 02/28/25 16:40 Oxygen Delivery Method Room Air 02/28/25 16:40 General: Healthy appearing, in no acute distress. Able to give a complete and coherent history. Well-nourished well-developed HEENT: Moist mucous membranes, normal sclera with reactive pupils, Respiratory: Lungs are clear to auscultation, no wheezing no rales no rhonchi. Full and symmetrical air movement. Tenderness along the right costal chondral border which reproduces his chest pain Cardiac: Regular rate and rhythm no murmurs no bruits Abdomen: Soft, nontender, no rebound or guarding, no flank pain Skin: Warm and dry, no rashes Neurologic: Grossly neurologically intact with no obvious asymmetries or abnormalities Extremities: No trauma, well perfused Psych: Cooperative, appropriate insight and affect Course Orders Ordered: ED Orders 02/28/25 16:42 XR chest 1V Stat EKG-12 Lead Stat 02/28/25 16:48 Complete Blood Count AUTO DIFF Stat Comprehensive Metabolic Panel Stat Lipase Stat Magnesium Stat NT-proBNP (BNP-Adult 18+) Stat PTT Partial Thromboplastin [place] Stat Prothrombin Time INR Stat Troponin & CK Cardiac Panel Stat Discontinued Medications Aspirin (Aspirin 81 Mg Chew Tab) 324 mg PO NOW ONE Stop: 02/28/25 16:43 Last Admin: 02/28/25 17:07 Dose: 324 mg Documented By: BENNY Vital Signs Vital signs: Vital Signs - 8 hr 02/28/25 16:40 02/28/25 17:07 02/28/25 17:08 Pulse Rate 105 H 95 H Respiratory Rate 16 Blood Pressure 136/88 136/85 Pulse Oximetry 96 98 Oxygen Delivery Method Room Air 02/28/25 17:08 02/28/25 17:30 02/28/25 17:30 Pulse Rate 92 H 86 Respiratory Rate 14 16 Blood Pressure 123/81 Pulse Oximetry 98 95 Oxygen Delivery Method 02/28/25 18:00 02/28/25 18:00 02/28/25 19:00 Pulse Rate 96 H 89 Respiratory Rate 18 19 Blood Pressure 118/73 128/81 Pulse Oximetry 96 98 Oxygen Delivery Method Room Air 02/28/25 19:30 02/28/25 19:30 02/28/25 20:00 Pulse Rate 96 H 86 Respiratory Rate 18 19 Blood Pressure 139/73 Pulse Oximetry 96 97 Oxygen Delivery Method 02/28/25 20:00 02/28/25 20:30 02/28/25 20:31 Pulse Rate 80 Respiratory Rate 18 Blood Pressure 132/83 117/69 Pulse Oximetry 96 Oxygen Delivery Method 02/28/25 20:31 Pulse Rate 80 Respiratory Rate 21 Blood Pressure Pulse Oximetry 96 Oxygen Delivery Method MDM - Chest Pain Lab Data 02/28/25 16:48 02/28/25 16:48 Labs: Lab Results 02/28/25 Range/Units 16:48 WBC 8.6 (4.5-11.0) X10^3/uL RBC 5.06 (4.5-5.9) X10^6/uL Hgb 16.9 (13.5-17.5) g/dL Hct 47.2 (41-53) % MCV 93.4 (80-100) fL MCH 33.5 (26-34) PG MCHC 35.9 (30-36) % RDW 13.4 (11.6-14.8) % Plt Count 280 (150-400) X10^3/uL Neut % (Auto) 67.5 (50-75) % Lymph % (Auto) 23.2 L (25-40) % [place] % (Auto) 7.5 (3-14) % Eos % (Auto) 1.2 L (2-4) % Baso % (Auto) 0.6 (0-2) % Neut # (Auto) 5800 (9990-9748) /uL Lymph # (Auto) 2000 (3651-7157) /uL [place] # (Auto) 600 (0-900) /uL Eos # (Auto) 100 (0-450) /uL Baso # (Auto) 100 (0-100) /uL PT 12.2 (9.4-12.5) SECONDS INR 1.1 (0.9-1.3) APTT 66 H (25.1-36.5) SECONDS Sodium 137 (137-145) mmol/L Potassium 3.9 (3.4-5.1) mmol/L Chloride 100 (98-107) mmol/L Carbon Dioxide 28 (22-32) mmol/L BUN 12 (9-20) mg/dL Creatinine 1.12 (0.66-1.25) mg/dL Estimated GFR > 60 (>60) mL/min BUN/Creatinine Ratio 10.7 (6-22) Glucose 143 H (70-100) mg/dL Calcium 9.9 (8.4-10.2) mg/dL Magnesium 2.2 (1.6-2.3) mg/dL Total Bilirubin 1.1 (0.2-1.3) mg/dL AST 35 (17-59) IU/L ALT 31 (<50) IU/L Alkaline Phosphatase 74 (38-126) U/L Total Creatine Kinase 75 (55-170) U/L Troponin I < 0.012 (0.01-0.034) ng/mL NT-Pro-B Natriuret Pep < 20 (<125) pg/mL Total Protein 8.2 (6.3-8.2) g/dL Albumin 5.1 H (3.5-5.0) g/dL Globulin 3.1 (1.7-4.1) g/dL Albumin/Globulin Ratio 1.6 (1.0-2.8) Lipase 66 (23-300) U/L MDM Narrative Medical decision making narrative: 44-year-old gentleman with no significant medical history with 6 days of cough and right-sided chest pain worse with cough and movement. Chest pain is reproducible with palpation along the left costochondral margin. Possibilities do include pneumonia, costochondritis, viral etiology, acute coronary syndrome, pneumothorax, pulmonary embolism. Lab work including CBC and chemistries are unremarkable. Troponin is undetectable and BNP is low. EKG shows sinus tachycardia at a rate of 106 with no acute ischemic changes Chest x-ray is unremarkable, no infiltrates, no cardiomegaly, With shared clinical decision-making, patient would like to try single dose of dexamethasone to help with inflammation but continues to try and avoid medications otherwise as an outpatient. Diagnosis of costochondritis with the absence of acute bacterial infection, acute coronary syndrome, pneumothorax. Discussed etiology of the symptoms, anticipated course of recovery and treatment. There was no indication for additional imaging, further workup or hospitalization. Patient is safe for discharge Discharge Plan Departure Patient Disposition: Home Clinical Impression: Costochondritis, acute Instructions: DI for Costochondritis Activity Restrictions/Additional Instructions: Thank you for coming in today Based on your clinical exam and blood work, there was no evidence of bacterial pneumonia, heart attack, collapsed lung, blood clots in your lungs or other life-threatening abnormalities to explain your pain. I suspect that the chest tenderness is inflammation along the breastbone where the ribs attached. We frequently see this in the setting of upper respiratory symptoms and mild viral infections. Typically it will improve with in 7-10 days. I have given you a dose of dexamethasone, a steroid, in the emergency department to help with the inflammatory pain. You do not have to take any other medications however, using 400 mg of ibuprofen (2 [id number] pills) and 1 Tylenol every 6 hours can be very helpful in controlling pain. If you find that you are getting worse or develop any new symptoms, please feel free to return to the emergency department for further evaluation. Prescriptions: No Action methocarbamol 750 mg tablet 750 mg PO Q6H PRN (Reason: muscle spasm) Qty: 60 0RF cyclobenzaprine 10 mg tablet 10 mg PO TID PRN (Reason: muscle spasm) Qty: 20 0RF Referrals: Murali Araya MD [Primary Care Provider] - Stand Alone Forms: Patient Portal/API/Survey
[2025-02-28] MEDS: DEXAMETHASONE 10 MG/ML VIAL IV (21:40)
== END 2025-02-28 21:47 | disposition home or self-care (01) ==
PROVIDERS: Emergency Medicine; Emergency Provider Emergency Medicine; PCP Internal Medicine Medical Oncology
DX: M94.0 Chondrocostal junction syndrome [Tietze] (principal); R06.00 Dyspnea, unspecified
CPT/HCPCS: 36415; 71045; 80053; 82550; 83690; 83735; 83880; 84484; 85025; 85610; 85730; 93005; 96374; 99284; J1100